=== PATIENT | male | born 1960 | race Caucasian/White ===

== ENCOUNTER 2017-08-08 11:10 | Emergency (ER) | payer MEDICAID ==
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
== END 2017-08-08 11:40 ==
LOC: VM.ED 11:10 → SUPCPDRO 11:10 → VM.ED 11:40
DX: M94.0 Chondrocostal junction syndrome [Tietze] (principal); F10.129 Alcohol abuse with intoxication, unspecified; V49.9XXA Car occupant (driver) (passenger) injured in unspecified traffic accident, initial encounter; Y92.411 Interstate highway as the place of occurrence of the external cause
CPT/HCPCS: 93005; 99284